=== PATIENT | male | born 1960 | race Caucasian/White ===

== ENCOUNTER 2021-07-23 09:45 | Emergency (ER) | payer BC ==
[2021-07-23 09:52] VITALS: BP 124/72; PULSE 77; RESP 18; TEMP 98
[2021-07-23] MEDS ORDERED: IBUPROFEN 600 MG TAB PO STA (10:22)
--- NOTE | 2021-07-23 10:22 | ED ---
General Adult HPI - General Chief complaint: Extremity Injury, Lower Stated complaint: R leg pain Time Seen by Provider: 07/23/21 10:06 Source: patient, RN notes reviewed Mode of arrival: ambulatory Limitations: no limitations - History of Present Illness Initial comments: Well-appearing 61-year-old male presents to the emergency room with complaints of right groin pain for the past 3 months intermittently. 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 It is better when he is resting. He denies any nausea vomiting or fevers. He does not have a primary care doctor. He denies any medical problems or surgical history. He states that the pain is better when he lays down and worse when he is walking or heavy lifting. -: month(s) (3) Location: right (Groin) Radiation: distal Severity scale (1-10): 9 Quality: sharp Consistency: intermittent, now resolved Improves with: rest Worsens with: movement (Walking or heavy lifting) Associated Symptoms: denies other symptoms Treatments Prior to Arrival: none - Related Data Allergies Allergy/AdvReac Type Severity Reaction Status Date / Time No Known Allergies Allergy Verified 07/23/21 09:49 Review of Systems ROS Statement: Those systems with pertinent positive or pertinent negative responses have been documented in the HPI. ROS Other: All systems not noted in ROS Statement are negative. Past Medical History Past Medical History: No Reported History Additional Past Medical History / Comment(s): basal cell carcinoma History of Any Multi-Drug Resistant Organisms: None Reported Past Surgical History: Appendectomy Additional Past Surgical History / Comment(s): carcinoma removal Past Psychological History: No Psychological Hx Reported Smoking Status: Never smoker Past Alcohol Use History: None Reported Past Drug Use History: None Reported General Exam Limitations: no limitations General appearance: alert, in no apparent distress Head exam: Present: atraumatic, normocephalic, normal inspection Eye exam: Present: normal appearance, PERRL, EOMI. Absent: scleral icterus, conjunctival injection, periorbital swelling ENT exam: Present: normal exam, normal oropharynx, mucous membranes moist Neck exam: Present: normal inspection, full ROM. Absent: tenderness, meningismus, lymphadenopathy Respiratory exam: Present: normal lung sounds bilaterally. Absent: respiratory distress, wheezes, rales, rhonchi, stridor Cardiovascular Exam: Present: regular rate, normal rhythm, normal heart sounds. Absent: systolic murmur, diastolic murmur, rubs, gallop, clicks GI/Abdominal exam: Present: soft, normal bowel sounds. Absent: distended, tenderness, guarding, rebound, rigid Extremities exam: Present: normal inspection, full ROM, normal capillary refill. Absent: tenderness, pedal edema, joint swelling, calf tenderness Right Neurovascular tendon exam: Present: no vascular compromise. Absent: pulse deficit, abnormal cap refill Gait: observed and normal Back exam: Present: normal inspection, full ROM. Absent: tenderness, CVA tenderness (R), CVA tenderness (L), muscle spasm, paraspinal tenderness, vertebral tenderness, rash noted Neurological exam: Present: alert, oriented X3, CN II-XII intact Psychiatric exam: Present: normal affect, normal mood Skin exam: Present: warm, dry, intact, normal color, other (Right groin inguinal hernia less than 1 cm that is reducible). Absent: rash Course Vital Signs 07/23/21 09:50 Temperature 98 F Pulse Rate 77 Respiratory 18 Rate Blood Pressure 124/72 O2 Sat by Pulse 98 Oximetry Medical Decision Making - Medical Decision Making There is a palpable indirect inguinal hernia on the right that is reducible when patient lays flat. 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 He states that the pain has been present for 3 months off and on. There is no testicular pain. He denies any dysuria or penile discharge. He was referred to surgery directed to return if any new or worsening symptoms including increased pain, nausea vomiting or fevers. Case discussed with Dr. Dennis Disposition Clinical Impression: Inguinal hernia Disposition: HOME SELF-CARE Condition: Good Instructions (If sedation given, give patient instructions): Inguinal Hernia (ED) Additional Instructions: Follow-up with surgery within the next 7 days return to the emergency room with any new or worsening symptoms including increased pain, nausea vomiting or fevers. Is patient prescribed a controlled substance at d/c from ED?: No Referrals: None,Stated [Primary Care Provider] - 1-2 days Jean-Paul Montaño MD [Medical Doctor] - 1-2 days Time of Disposition: 10:17
== END 2021-07-23 10:33 | disposition home or self-care (01) ==
LOC: EC 09:45
DX: K40.90 Unilateral inguinal hernia, without obstruction or gangrene, not specified as recurrent (principal)
CPT/HCPCS: 99283

== ENCOUNTER → 2021-07-29 | Outpatient (CLI) | payer BC ==
[2021-07-29 16:14] LABS: Basophils # (A) 0.12 X 10*3/uL (0.00-0.10); Basophils % (A) 1.7 %; Eosinophils # (A) 0.31 X 10*3/uL (0.04-0.35); Eosinophils % (A) 4.4 %; HCT 38.2 % (39.6-50.0); HGB 12.5 g/dL (13.0-17.0); Lymphocytes # (A) 1.71 X 10*3/uL (0.90-5.00); Lymphocytes % (A) 24.4 %; MCH 31.8 pg (27.0-32.0); MCHC 32.7 g/dL (32.0-37.0); MCV 97.2 fL (80.0-97.0); Mean Platelet Volume 10.7 fL (9.5-12.2); Monocytes # (A) 0.56 X 10*3/uL (0.20-1.00); Neutrophils # (A) 4.28 X 10*3/uL (1.80-7.70); Neutrophils % (A) 61.1 %; Platelet Count 325 X 10*3/uL (140-440); RBC 3.93 X 10*6/uL (4.40-5.60); RDW 12.8 % (11.5-14.5); WBC 7.01 X 10*3/uL (4.50-10.00)
== END | disposition home or self-care (01) ==
LOC: LABWHC1 09:28
PROVIDERS: ATTEND Surgery
DX: K40.90 Unilateral inguinal hernia, without obstruction or gangrene, not specified as recurrent (principal)
CPT/HCPCS: 36415; 85025

== ENCOUNTER 2021-08-03 08:02 | Day surgery (SDC) | payer BC ==
[2021-07-29 16:11] VITALS: BMI 24.3
[~2021-08-03 08:02] MED LIST: ACETAMINOPHEN TAB 500 MG TAB PO PRN; DEXAMETHASONE SOD PHOSPHATE 4 MG/ML 1 ML VIAL IV ONE; HEPARIN SODIUM,PORCINE/PF 5,000 UNIT/0.5 ML SYRINGE SQ PRN; HYDROmorphone 0.5 MG/0.5 ML SYRINGE IVP PRN; LACTATED RINGERS 1,000 ML IV SCH; ONDANSETRON 4 MG/2 ML VIAL IVP ONE
[2021-08-03] MEDS ORDERED: LIDOCAINE 1% INJ 10MG/ML (20 ML MDV) ONE ×2 (09:08→10:45)
[2021-08-03 09:29] VITALS: RESP 16
[2021-08-03] MEDS ORDERED: MIDAZOLAM 2 MG/2 ML VIAL IVP ONE ×2 (09:30→09:31)
--- NOTE | 2021-08-03 10:32 | P.GSHP ---
History of Present Illness H&P Date: 08/03/21 Chief Complaint: Right inguinal hernia This is a 7-year-old male who presents today for laparoscopic robotic-assisted repair of right inguinal hernia. Past Medical History Past Medical History: Cancer Additional Past Medical History / Comment(s): basal cell carcinoma. inguinal hernia History of Any Multi-Drug Resistant Organisms: None Reported Past Surgical History: Appendectomy Additional Past Surgical History / Comment(s): carcinoma removal Past Anesthesia/Blood Transfusion Reactions: No Reported Reaction Smoking Status: Never smoker - Past Family History Mother Family Medical History: No Reported History Medications and Allergies Home Medications Medication Instructions Recorded Confirmed Type No Known Home Medications 07/29/21 07/29/21 History Allergies Allergy/AdvReac Type Severity Reaction Status Date / Time No Known Allergies Allergy Verified 08/03/21 08:41 Surgical - Exam Vital Signs Temp Pulse Resp BP Pulse Ox 97.3 F L 67 16 145/74 100 08/03/21 09:28 08/03/21 09:28 08/03/21 09:28 08/03/21 09:28 08/03/21 09:28 - General well developed, well nourished, no distress - Eyes PERRL - ENT normal pinna - Neck no masses - Respiratory normal expansion - Cardiovascular Rhythm: regular - Abdomen Abdomen: soft, non tender Assessment and Plan Assessment: Right inguinal hernia. We'll perform laparoscopic robotic-assisted repair.
[2021-08-03] MEDS ORDERED: KETOROLAC 15 MG/ML 1 ML VIAL ONE (10:45)
[2021-08-03] MEDS ORDERED: HYDROmorphone (PF) 1 MG/ML ONE (10:45)
[2021-08-03] MEDS ORDERED: PROPOFOL 10 MG/ML 20 ML VIAL IV ONE (10:45)
[2021-08-03] MEDS ORDERED: SUCCINYLCHOLINE CHLORIDE 100 MG/5 ML SYR IV ONE (10:45)
[2021-08-03] MEDS ORDERED: LIDOCAINE 1%-EPI 1:100,000 20 ML VIAL ONE (10:45)
[2021-08-03] MEDS ORDERED: ROPIVACAINE 5 MG/ML 30 ML VIAL ONE (10:45)
[2021-08-03] MEDS ORDERED: NEOSTIGMINE 1 MG/ML 10 ML VIAL ONE (10:45)
[2021-08-03] MEDS ORDERED: fentaNYL (PF) 50 MCG/ML 2 ML AMP ONE (10:45)
[2021-08-03] MEDS ORDERED: GLYCOPYRROLATE 0.2 MG/ML 2 ML VIAL ONE (10:45)
[2021-08-03] MEDS ORDERED: MIDAZOLAM 2 MG/2 ML VIAL ONE (10:45)
[2021-08-03] MEDS ORDERED: ROCURONIUM 10 MG/ML (5 ML VIAL) IV ONE (10:45)
[2021-08-03] MEDS ORDERED: BUPIVACAINE (PF) 0.5% 30 ML VIAL SQ ONE ×2 (11:11→11:15)
[2021-08-03] MEDS ORDERED: LACTATED RINGERS 1,000 ML IV ONE (11:38)
--- NOTE | 2021-08-03 11:45 | P.OP ---
Date of Procedure: 08/03/21 Preoperative Diagnosis: Right inguinal hernia Postoperative Diagnosis: Bilateral hernia Procedure(s) Performed: Laparoscopic robotic system repair of bilateral inguinal hernia Anesthesia: YANETH Surgeon: Jaiden Friedman Estimated Blood Loss (ml): 5 Pathology: none sent Condition: stable Disposition: PACU Description of Procedure: The patient's placed on the operating table in the supine position. The patient received general anesthesia. The patient's abdomen was prepped and draped in usual sterile fashion. The skin was anesthetized 1% local Xylocaine at the incision sites. Using an 11 blade a skin incision was made at the umbilicus. The fascia was grasped with a Sen and then the peritoneal cavity was entered with the Veress needle. Position of the Veress needle was confirmed with a positive drop test. After adequate insufflation a 5 mm trocar was placed into the peritoneal cavity. The Laparoscope was placed the peritoneal cavity. And a robotic 8 mm trocar was placed in the right lateral position and then another 8 mm robotic trochars placed in the left lateral position. The original 5 mm trocar was exchanged for a 12 mm trocar. The patient was placed in reverse Trendelenburg and then the patient was docked to the robot. Next the peritoneum over top of the right inguinal hernia was incised and then using blunt and sharp dissection and electrocautery the hernia sac was dissected free from the floor of the inguinal canal. The hernia sac was completely reduced into the peritoneal cavity. And then using the Pro durability technician mesh the hernia was repaired. The peritoneum was then sutured with 20V lock suture. Next the peritoneum over top of the left inguinal hernia was incised and then using blunt and sharp dissection and electrocautery the hernia sac was dissected free from the floor of the inguinal canal. The hernia sac was completely reduc ed into the peritoneal cavity. And then using the Pro durability technician mesh the hernia was repaired. The peritoneum was then sutured with 20V lock suture. The patient was then undocked the robot. The needle was withdrawn from the peritoneal cavity. The umbilical trocar site was closed with 0 Ethibond suture. The skin was closed interrupted 3-0 Monocryl suture. Dermabond dressing was applied. Patient was sent to recovery in stable condition.
[2021-08-03 11:58] VITALS: TEMP 98.5
[2021-08-03] MEDS ORDERED: HYDROmorphone 0.5 MG/0.5 ML SYRINGE IVP ONE (12:15)
--- NOTE | 2021-08-03 12:33 | P.ANPRN ---
Procedure Note - Anesthesia - Nerve Block Performed Bilateral Erector Spinae Single Date of Procedure: 08/03/21 Procedure Start Time: :30 Procedure Stop Time: 09:38 Location of Patient: PreOp Indication: Acute Post-Operative Pain, Requested by Surgeon Sedation Type: Sedate with meaningful contact maintained Preparation: Sterile Prep Position: Prone Needle Types: Pajunk Needle Gauge: 21 Ultrasound used to visualize needle placement: Yes Ultrasound used to observe medication spread: Yes Blood Aspirated: No Pain Paresthesia on Injection Noted: No Resistance on Injection: Normal Image Stored and Saved: Yes Events: Uneventful and Well Tolerated (ropi .5% 15cc plus xylo 1% with epi 15cc given bilaterally at L1)
[2021-08-03 13:50] VITALS: BP 121/55; PULSE 61
== END 2021-08-03 13:52 | disposition home or self-care (01) ==
LOC: OR 08:02
PROVIDERS: ATTEND Surgery
DX: K40.20 Bilateral inguinal hernia, without obstruction or gangrene, not specified as recurrent (principal); Z85.828 Personal history of other malignant neoplasm of skin
CPT/HCPCS: 49650; S2900; 64999

== ENCOUNTER 2021-08-03 17:30 | Emergency (ER) | payer BC ==
[2021-08-03 17:58] VITALS: BP 137/75; PULSE 65; RESP 18; TEMP 98
--- NOTE | 2021-08-03 18:46 | ED ---
Male Urogenital HPI - General Chief complaint: Urogenital Stated complaint: post op today/not able to urinate Time Seen by Provider: 08/03/21 18:07 Source: patient Mode of arrival: ambulatory Limitations: no limitations - History of Present Illness Initial comments: 7-year-old male presents emergency Department with a chief complaint of urinary retention. Patient reports early this morning he had hernia repair surgery performed and was discharged without a Gonzalez catheter. Patient reports he was able to urinate very small amounts prior to discharge. However, he has been drinking plenty of fluids after he was discharged but is not able to urinate. Patient reports pressure over the bladder. He denies any flank pain nausea vomiting or diarrhea. Denies any fevers or chills. - Related Data Previous Rx's Medication Instructions Recorded Acetaminophen Tab [Tylenol] 650 mg PO Q6H #30 tab 08/03/21 Docusate [Colace] 100 mg PO BID #20 cap 08/03/21 Ibuprofen [Motrin] 600 mg PO Q6HR PRN #40 tab 08/03/21 oxyCODONE HCL [OxyIR] 5 mg PO Q6H PRN 3 Days #10 tab 08/03/21 oxyCODONE HCL [OxyIR] 5 mg PO Q6H PRN 3 Days #9 tab 08/03/21 Allergies Allergy/AdvReac Type Severity Reaction Status Date / Time No Known Allergies Allergy Verified 08/03/21 17:54 Review of Systems ROS Statement: Those systems with pertinent positive or pertinent negative responses have been documented in the HPI. ROS Other: All systems not noted in ROS Statement are negative. Past Medical History Past Medical History: No Reported History Additional Past Medical History / Comment(s): basal cell carcinoma History of Any Multi-Drug Resistant Organisms: None Reported Past Surgical History: Appendectomy Additional Past Surgical History / Comment(s): carcinoma removal Past Psychological History: No Psychological Hx Reported Smoking Status: Never smoker Past Alcohol Use History: None Reported Past Drug Use History: None Reported General Exam Limitations: no limitations General appearance: alert, in no apparent distress Head exam: Present: atraumatic, normocephalic, normal inspection Eye exam: Present: normal appearance Pupils: Present: normal accommodation ENT exam: Present: normal exam, normal oropharynx, mucous membranes moist Neck exam: Present: normal inspection, full ROM. Absent: tenderness, lymphadenopathy Respiratory exam: Present: normal lung sounds bilaterally. Absent: respiratory distress Cardiovascular Exam: Present: regular rate, normal rhythm, normal heart sounds. Absent: systolic murmur GI/Abdominal exam: Present: soft (Laparoscopic incision sites are healing well), tenderness (Suprapubic tenderness). Absent: distended, guarding, rebound, rigid Extremities exam: Present: normal inspection, full ROM. Absent: tenderness Back exam: Present: normal inspection, full ROM. Absent: tenderness Neurological exam: Present: alert, oriented X3 Psychiatric exam: Present: normal affect, normal mood Skin exam: Present: warm, dry, intact, normal color Course Vital Signs 08/03/21 17:54 Temperature 98 F Pulse Rate 65 Respiratory 18 Rate Blood Pressure 137/75 O2 Sat by Pulse 100 Oximetry Medical Decision Making - Medical Decision Making 61-year-old male presents emergency Department with a chief complaint of urinary retention. On physical examination, suprapubic tenderness. Laparoscopic incision sites are healing well. I gave the option of a Gonzalez catheter versus tree catheter. Patient preferred to do a straight catheter and will return if he continues to have urinary retention. Patient likely experiencing urinary retention secondary to anesthesia. Return parameters were thoroughly discussed the patient was understanding and agreeable. Case discussed with Dr. Hernandes Disposition Clinical Impression: Postoperative urinary retention Disposition: HOME SELF-CARE Condition: Stable Instructions (If sedation given, give patient instructions): Urinary Retention in Men (ED) Additional Instructions: Please return to the Emergency Department if symptoms worsen or any other concerns. Is patient prescribed a controlled substance at d/c from ED?: No Referrals: None,Stated [Primary Care Provider] - 1-2 days Time of Disposition: 18:46
== END 2021-08-03 19:19 | disposition home or self-care (01) ==
LOC: EC 17:30
DX: R33.9 Retention of urine, unspecified (principal); Z90.49 Acquired absence of other specified parts of digestive tract; Z85.828 Personal history of other malignant neoplasm of skin
CPT/HCPCS: 51701; 51798; 99283

== ENCOUNTER → 2022-03-26 | Outpatient (CLI) | payer BC ==
--- NOTE | 2022-03-26 09:24 | CT ---
EXAMINATION TYPE: CT abdomen pelvis w con DATE OF EXAM: 03/26/2022 COMPARISON: None INDICATION: Diverticulitis DLP: 711 mGycm, Automated exposure control for dose reduction was used. CONTRAST: 100 ml mL of Isovue 300. Study performed with Oral Contrast TECHNIQUE: Axial images were obtained from above the diaphragm to the pubic rami in the axial plane a t 5 mm thick sections. Reconstructed images are reviewed on the computer in the coronal plane. FINDINGS: Limited CT sections are obtained the lung bases. The lung bases are clear. CT ABDOMEN: Liver: There is a 0.9 cm cyst in the superior right lobe liver. Liver otherwise appears unremarkable. Spleen: Normal Pancreas: Normal Adrenal glands: The adrenal glands are normal. Gallbladder: Normal Kidneys: No masses are evident. No hydronephrosis is present. No cysts are present. Delayed images were obtained through the kidneys, which remain unremarkable. Aorta: Normal Inferior vena cava: Normal. CT PELVIS: Loops of bowel within the abdomen and pelvis are normal. No significant diverticuli are identified. No suspicious inflammatory change adjacent to the colon is evidence suggest acute diverticulitis. F ecal debris is through the colon. There are some loops of bowel lacking oral contrast were incomplete ly distended limiting their evaluation. Appendix: Not visualized. No suspicious dilated tubular structure or inflammatory changes evident. Urinary bladder: Normal. Genitourinary structures: Prostate is prominent. Osseous structures: No suspicious lytic or sclerotic lesions. IMPRESSIONS: 1. No suspicious abnormality to account for pelvic pain. No acute diverticulitis radiographically ev ident.
== END | disposition home or self-care (01) ==
LOC: RADCTMAIN 07:06
PROVIDERS: ATTEND Surgery Plastic and Reconstructive Surgery
DX: K57.92 Diverticulitis of intestine, part unspecified, without perforation or abscess without bleeding (principal)
CPT/HCPCS: 74177; Q9967

== ENCOUNTER → 2022-04-21 | Outpatient (CLI) | payer BC ==
[2022-04-21 17:22] LABS: INR 0.9 (<1.2); Partial Thromboplastin Time 23.9 sec (22.0-30.0)
[2022-04-21 22:32] LABS: HCT 34.6 % (39.6-50.0); HGB 11.4 g/dL (13.0-17.0); MCH 31.4 pg (27.0-32.0); MCHC 32.9 g/dL (32.0-37.0); MCV 95.3 fL (80.0-97.0); Mean Platelet Volume 10.2 fL (9.5-12.2); NRBC Per 100 WBC 0 /100 WBCS (0.0-0.0); Platelet Count 281 X 10*3/uL (140-440); RBC 3.63 X 10*6/uL (4.40-5.60); WBC 6.63 X 10*3/uL (4.50-10.00)
[2022-04-21 22:39] LABS: African American GFR (CKD) 110.4 (60.0-200.0); Albumin 4.5 g/dL (3.8-4.9); Albumin/Globulin Ratio 1.81 (1.60-3.17); Anion Gap 8.8 mmol/L (10.00-18.00); BUN/Creat Ratio 19.42 Ratio (12.00-20.00); Calcium 9.8 mg/dL (8.7-10.3); Carbon Dioxide 25.2 mmol/L (20.0-27.5); Globulin 2.5 g/dL (1.6-3.3); Non-African American GFR(CKD) 95.3 (60.0-200.0); Potassium 3.8 mmol/L (3.5-5.5); Total Bilirubin 0.2 mg/dL (0.30-1.20); Total Protein 6.9 g/dL (6.2-8.2)
[2022-04-22 00:52] LABS: Appearance,Urine Clear (Clear); Bilirubin,Urine Negative (Negative); Blood,Urine Negative (Negative); Color,Urine Yellow (Yellow); Ketones,Urine Negative (Negative); Nitrite,Urine Negative (Negative); PH, Urine 6.5 (5.0-8.0); Specific Gravity,Urine 1.011 (1.001-1.030); Urobilinogen,Urine 0.2 (0.2,1.0)
== END | disposition home or self-care (01) ==
LOC: LABWHC1 15:52
PROVIDERS: ATTEND Orthopaedic Surgery
DX: Z01.818 Encounter for other preprocedural examination (principal); I42.2 Other hypertrophic cardiomyopathy; M16.11 Unilateral primary osteoarthritis, right hip; R00.1 Bradycardia, unspecified; R94.31 Abnormal electrocardiogram [ECG] [EKG]
CPT/HCPCS: 36415; 80053; 81003; 85027; 85610; 85730; 87070; 93005

== ENCOUNTER 2022-04-28 11:55 | Observation (INO) | payer BC ==
[2022-04-23 15:20] VITALS: BMI 22.1
[~2022-04-28 11:55] MED LIST changes: +DEXAMETHASONE SOD PHOSPHATE 10 MG/ML 1 ML VIAL IV PRN; +DOCUSATE 100 MG CAP PO PRN; +FAMOTIDINE 20 MG/2 ML VIAL IVP PRN; -HEPARIN SODIUM,PORCINE/PF 5,000 UNIT/0.5 ML SYRINGE SQ PRN; -HYDROmorphone 0.5 MG/0.5 ML SYRINGE IVP PRN; +KETOROLAC 15 MG/ML 1 ML VIAL IVP PRN; -LACTATED RINGERS 1,000 ML IV SCH; +LIDOCAINE 1% (10MG/ML) FOR IV START INTRADERMA PRN; +MIDAZOLAM 2 MG/2 ML VIAL IV PRN; +ONDANSETRON 4 MG/2 ML VIAL IVP PRN; +TRANEXAMIC ACID IN NACL,ISO-OS 1,000 MG in SALINE 1 100ML.BAG IVPB PRN
[2022-04-28] MEDS: LACTATED RINGERS 1,000 ML IV SCH (12:53)
[2022-04-28] MEDS: oxyCODONE ER 10 MG TAB.ER.12H PO PRN ×2 (12:56→13:06)
[2022-04-28] MEDS ORDERED: KETOROLAC 15 MG/ML 1 ML VIAL ONE (13:00)
[2022-04-28] MEDS ORDERED: TRANEXAMIC ACID IN NACL,ISO-OS 1,000 MG in SALINE 1 100ML.BAG IVPB ONE (16:08)
[2022-04-28] MEDS ORDERED: NEOSTIGMINE 1 MG/ML 10 ML VIAL ONE (16:26)
[2022-04-28] MEDS ORDERED: PROPOFOL 10 MG/ML 20 ML VIAL IV ONE (16:26)
[2022-04-28] MEDS ORDERED: ROCURONIUM 10 MG/ML (5 ML VIAL) IV ONE (16:26)
[2022-04-28] MEDS ORDERED: GLYCOPYRROLATE 0.2 MG/ML 2 ML VIAL ONE (16:26)
[2022-04-28] MEDS ORDERED: KETAMINE 10 MG/ML 20 ML VIAL ONE (16:26)
[2022-04-28] MEDS ORDERED: SUCCINYLCHOLINE CHLORIDE 100 MG/5 ML SYR IV ONE (16:26)
[2022-04-28] MEDS ORDERED: MIDAZOLAM 2 MG/2 ML VIAL ONE (16:26)
[2022-04-28] MEDS ORDERED: fentaNYL (PF) 50 MCG/ML 2 ML AMP ONE (16:26)
[2022-04-28] MEDS ORDERED: LIDOCAINE 2% INJ 20 MG/ML (2 ML VIAL) ONE (16:26)
[2022-04-28] MEDS: ROPIVACAINE/EPI/CLONIDINE/KET 50 ML SYRINGE MISCELLANE PRN ×2 (17:15→18:15)
--- NOTE | 2022-04-28 18:37 | P.OP ---
Date of Procedure: 04/28/22 Preoperative Diagnosis: Severe right hip osteoarthritis Postoperative Diagnosis: Same Procedure(s) Performed: Right direct anterior total hip arthroplasty Implants: 1. Hammond Trident II 52 mm cup 2. Hammond Insignia size #8 high offset femoral stem 3. Biolox delta ceramic femoral head 36 mm, -5 mm neck Anesthesia: YANETH Surgeon: Rachid Gutierrez Tunnel Man #1: Beronica Yarbrough Estimated Blood Loss (ml): 200 IV fluids (ml): 1,200 Pathology: none sent Condition: stable Disposition: PACU Indications for Procedure: I had a long discussion with the patient in the office on the potential risks and complications of an elective total hip replacement through a direct anterior approach. Risks discussed include, but are certainly not limited to, risks from anesthesia, superficial infection requiring local wound care or antibiotics, deep gris-prosthetic joint infection and the treatment required to eradicate infection, intraoperative fracture, postoperative periprosthetic fracture, damage to local blood vessels or nerves particularly the lateral femoral cutaneous nerve, delayed wound healing requiring local wound care or possibly surgical debridement, hip dislocation, leg length discrepancy, soft tissue irritation around the total hip implant such as iliopsoas tendinitis or trochanteric bursitis, wear and osteolysis from the implants, squeaking or audible noises, groin pain, thigh pain, heterotopic ossification, stiffness, aseptic loosening of the implants, dissatisfaction with surgical outcome, need for revision surgery, DVT, PE, swelling of the operative extremity, acute coronary event, stroke, failure to thrive, and possibly loss of life or limb. The patient understands that while these are the most common complications after an elective hip replacement there are certainly other less common complications possible. They were given ample time to ask questions regarding the potential complications of a hip replacement. Following our discussion the patient provided their verbal and written consent to go forward with an elective total hip replacement. Description of Procedure: The patient was identified in the preoperative holding area and the correct hip was marked with my initials. I reviewed the procedure and consent with the patient. All of their questions were answered. The patient was then brought back into the operating room by anesthesia. While on the [facility] anesthesia was administered by the anesthesia team. Preoperative antibiotics and tranexamic acid were also given. After the patient was under anesthesia I examined their ankles to determine their preoperative leg length discrepancy. The skin over the anterior aspect of the hip was shaved to remove hair over the site of planned incision. Both feet and ankles were padded with webril and boots for the [place] were applied. The patient was then carefully transferred onto the [place] table. A perineal post was immediately placed. The arms were placed on arm holders and were well-padded. Both boots were secured to the spars on the [place] table. The patient was positioned so that the pelvis was centered over the post. Nonsterile drapes were applied. A timeout was performed identifying the correct patient, operative extremity, and procedure. At this point fluoroscopy was brought in to take preoperative images of the pelvis and operative hip. Using the standing AP pelvis from the office as a template, a comparable image was obtained with fluoroscopy. A metallic bar was used to create a bi-ischial line for use as a reference to leg length adjustments during the procedure. Global offset was also measured on both the operative and nonoperative leg. Fluoroscopy was then brought out and a pre-scrub using a chlorhexidine scrub brush was performed. The operative limb was then prepped and draped in the standard sterile fashion. An anterior longitudinal incision was made lateral and distal to the ASIS. The skin and subcutaneous tissues were incised sharply. The underlying tensor fascia was identified and incised in its midportion. The fascia was dissected free from the underlying muscle and the muscle belly was retracted. A blunt tipped cobra retractor was placed over the superior neck under the muscle fibers of the gluteus minimus. The deep enveloping fascia of the tensor was incised. The anterior leash of vessels were then identified and cauterized. The fascia between the rectus and the capsule was then incised and the pre-capsular fat was excised. A second Cobra was placed inferior to the neck. The interval between the rectus and iliocapsularis and the hip capsule was developed and a retractor was placed carefully over the anterior rim of the acetabulum. A T-shaped anterior capsulotomy was performed. The superior capsular leaflet was left in place in the inferior capsular flap was excised. The Cobra retractors were placed intracapsularly. We then made a femoral neck osteotomy according to preoperative and intraoperative templating and confirmed the level of the osteotomy using fluoroscopic imaging. The femoral head was removed, passed off to the back table, and sized. The superior capsular flap was excised. Retr actors were placed circumferentially exposing the acetabulum. We then circumferentially debrided the acetabulum free of labrum and osteophytes. The pulvinar was removed to fully visualize the cotyloid fossa. We then sequentially reamed to achieve peripheral fit and excellent bleeding subchondral bone. The socket was thoroughly irrigated. The acetabular component was impacted into the appropriate position using fluoroscopy to guide version, inclination, and depth of insertion taking care to have a comparable image of the AP pelvis to the standing image taken in the office. An excellent press-fit was achieved and final position was confirmed using fluoroscopy. The press fit was augmented with bony cancellus dome screws. The liner was then impacted into the socket. Attention was then turned to the femur. The remnant dorsal lateral capsule was excised. The short external rotators were visible and protected. A bone hook was used to confirm appropriate translation of the trochanter away from the acetabulum. The leg was then extended and adducted and the bone hook was used to elevate the femur for broaching. A box osteotome and blunt tipped canal sound was then utilized to gain access to the femoral canal. We then sequentially broached the femur in appropriate anteversion until excellent torsional stability was achieved. The neck cut was brought flush to the trial broach with a calcar planar. A trial neck and head were then placed onto the broach and the hip was atraumatically reduced under direct visualization. External rotation to 90 was performed to assess stability. Fluoroscopy was brought in. An AP and lateral fluoroscopic image of the proximal femur was obtained to assess position and fill of the trial broach. An AP of the pelvis was then obtained and matched to the preoperative image taken. A bi-ischial bar was then placed and measurements were taken to assess changes in length and offset. The hip was then carefully dislocated, the proximal femur was exposed, and the trial implants were removed. The wound and proximal femur was thoroughly irrigated using sterile saline and pulsatile lavage. The final femoral implant was dispensed and gently tapped into place generating an excellent press-fit. The trunnion was cleansed and the final head was tapped into place to engage the Boss taper. The acetabulum was irrigated and visualized to be free of debris. The hip was carefully reduced. Stability was checked clinically with external rotation to 90 and there was no evidence of instability. Final fluoroscopic images were taken. The wound was then thoroughly irrigated and soaked with a dilute Betadine rinse for 3 minutes. 3 L of sterile saline was irrigated through the wound using pulsatile lavage. Local anesthetic cocktail was injected into the soft tissues around the surgical field. A deep drain was placed. The wound was then closed in layers. A sterile dressing was placed over the surgical incision and drain site. The drapes were taken down and the patient was carefully transferred off of the [place] table. Following removal of the boots the leg lengths felt acceptable. The patient was then taken to recovery room having tolerated the procedure well. Beronica Yarbrough PA-C was required as a skilled assistant professor of chemistry for patient positioning, surgical exposure, retraction, placement of implants, and closure of the surgic al wound. PLAN: The patient can weight-bear as tolerated on the operative extremity. 2 doses of postoperative antibiotics. DVT prophylaxis with aspirin 81 mg twice a day based on preoperative risk stratification. Physical therapy for gait training. Discontinue drain postoperative day #1 if output is less than 100 mL per shift.
[2022-04-28] MEDS ORDERED: NALOXONE 0.4 MG/ML 1 ML VIAL IV PRN (18:53)
[2022-04-28] MEDS ORDERED: hydrOXYzine pamoate 25 MG CAP PO PRN (18:53)
[2022-04-28] MEDS ORDERED: HYDROcodone/APAP 5-325MG 1 EACH TAB PO PRN ×2 (18:53)
[2022-04-28] MEDS ORDERED: HYDROmorphone 0.5 MG/0.5 ML SYRINGE IVP PRN (18:53)
[2022-04-28] MEDS ORDERED: ONDANSETRON 4 MG/2 ML VIAL IVP PRN (18:53)
[2022-04-28] MEDS: HYDROmorphone 0.5 MG/0.5 ML SYRINGE IVP PRN ×2 (19:06→19:31)
[2022-04-28] MEDS: MEPERIDINE 50 MG/ML SYRINGE IVP ONE ×2 (19:14→19:19)
[2022-04-28] MEDS ORDERED: LACTATED RINGERS 1,000 ML IV ONE (20:25)
[2022-04-28] MEDS: HYDROmorphone 1 MG/ML 1 ML SYRINGE IVP PRN (21:17)
[2022-04-28] MEDS: ASPIRIN 81 MG PO SCH (21:19)
[2022-04-28] MEDS: SENNOSIDES-DOCUSATE SODIUM 1 EACH TAB PO SCH (21:19)
--- NOTE | 2022-04-28 21:51 | XR ---
EXAMINATION TYPE: XR Hip Limited RT DATE OF EXAM: 04/28/2022 COMPARISON: NONE HISTORY: Hip surgery TECHNIQUE: Fluoroscopy FINDINGS: 37 seconds of fluoroscopy time was recorded. There are 5 images that show placement of a ri ght total hip prosthesis in good position. No complicating process seen. IMPRESSION: No complicating process.
[2022-04-29] MEDS: HYDROmorphone 1 MG/ML 1 ML SYRINGE IVP PRN ×4 (05:00→19:40)
[2022-04-29] MEDS: LACTATED RINGERS 1,000 ML IV SCH (06:50)
[2022-04-29] MEDS: ASPIRIN 81 MG PO SCH ×2 (07:04→22:10)
[2022-04-29 09:25] LABS: Basophils # (A) 0.06 X 10*3/uL (0.00-0.10); Basophils % (A) 0.5 %; Eosinophils # (A) 0.05 X 10*3/uL (0.04-0.35); Eosinophils % (A) 0.5 %; HCT 33.5 % (39.6-50.0); HGB 10.9 g/dL (13.0-17.0); Immature Grans, Automated 0.4 %; Lymphocytes # (A) 1.91 X 10*3/uL (0.90-5.00); Lymphocytes % (A) 17.2 %; MCHC 32.5 g/dL (32.0-37.0); MCV 95.2 fL (80.0-97.0); Mean Platelet Volume 10.8 fL (9.5-12.2); Monocytes # (A) 1.31 X 10*3/uL (0.20-1.00); Monocytes % (A) 11.8 %; NRBC Per 100 WBC 0 /100 WBCS (0.0-0.0); Neutrophils # (A) 7.74 X 10*3/uL (1.80-7.70); Neutrophils % (A) 69.6 %; Platelet Count 261 X 10*3/uL (140-440); RBC 3.52 X 10*6/uL (4.40-5.60); RDW 13.2 % (11.5-14.5); WBC 11.11 X 10*3/uL (4.50-10.00)
[2022-04-29] MEDS ORDERED: TAMSULOSIN 0.4 MG CAP.ER.24H PO STA (11:02)
--- NOTE | 2022-04-29 14:13 | P.CONS ---
History of Present Illness - Reason for Consult Consult date: 04/29/22 Medical management status post right hip arthroplasty - History of Present Illness This is a pleasant 62-year-old male who was admitted under orthopedic services for severe right hip osteoarthritis and is postop day #1. Patient underwent direct anterior approach right total hip arthroplasty with Dr. Gutierrez. Patient follows with Dr. Cazares in the outpatient setting and had presurgical clearance prior to admission. Patient's only past medical history reported is basal cell carcinoma of the chest area which was removed and otherwise denies any other medical history. Patient reports he does not smoke and denies illicit drug use, reports very rarely to social drinking. Patient was having extensive right hip pain and was evaluated by orthopedics and elected for this right hip arthroplasty. On exam today patient is having some urinary retention as a potential postop complication and reports on her previous surgery he had some retention for 1-2 days after surgery that resolved. Patient has had to have straight cath with over 500 noted on bladder scan. Will initiate Flomax and encouraged increased activity and close monitoring of postvoid residuals and frequent bladder scanning. Labs revealed a WBC mild reactive at 11.11, hemoglobin is 10.9, platelets are 261. Patient is currently maintained on baby aspirin twice a day for DVT prophylaxis. Will initiate PPI for GI prophylaxis and again encouraged oral intake and increased activity as tolerating. Physical therapy following the patient. Patient is afebrile and denies any chest pain or shortness of breath. Patient reports to tolerating diet with no reports of nausea or vomiting noted. Review Of Systems: Constitutional: No fever, no chills, no night sweats. No weight change. No weakness, fatigue or lethargy. No daytime sleepiness. EENT: No headache. No blurred vision or double vision, no loss of vision. No loss of Hearing, no ringing in the ears, no dizziness. No nasal drainage or congestion. No epistaxis. No sore throat. Lungs: No shortness of breath, cough, no sputum production. No wheezing. Cardiovascular: No chest pain, no lower extremity edema. No palpitations. No paroxysmal nocturnal dyspnea. No orthopnea. No lightheadedness or dizziness. No syncopal episodes. Abdominal: No abdominal pain. No nausea, vomiting. No diarrhea. No constipation. No bloody or tarry stools.. No loss of appetite. Genitourinary: No dysuria, increased frequency, urgency. Reports urinary retention. Reports some burning with initiation of stream status post straight catheterization Musculoskeletal: No myalgias. No muscle weakness, no gait dysfunction, no frequent falls. No back pain. No neck pain. Reports some right hip discomfort Integumentary: No wounds, no lesions. No rash or pruritus. No unusual bruising. No change in hair or nails. Neurologic: No aphasia. No facial droop. No change in mentation. No head injury. No headache. No paralysis. No paresthesia. Psychiatric: No depression. No anxiety. No mood swings. Endocrine: No abnormal blood sugars. No weight change. No excessive sweating or thirst. No cold intolerance. PHYSICAL EXAMINATION: GENERAL: The patient is alert and oriented x4, Well developed, well nourished. HEENT: Pupils are round and equally reacting to light. EOMI. no scleral icterus. No conjunctival pallor. Normocephalic, atraumatic. No pharyngeal erythema. No thyromegaly. CARDIOVASCULAR: S1 and S2 muffled PULMONARY: diminished breath sounds bilaterally with no wheezing or rhonchi noted. ABDOMEN: soft. Nontender on exam. non-distended, normoactive bowel sounds. No palpable organomegaly. MUSCULOSKELETAL: No joint swelling or deformity. EXTREMITIES: No cyanosis, clubbing, or pedal edema. Right hip surgical dressing is intact, drain noted as well with some sanguinous output NEUROLOGICAL: Gross neurological examination did not reveal any focal deficits. SKIN: No rashes. Assessment: Severe right hip osteoarthritis status post anterior approach total right hip arthroplasty postop day #1 Mild leukocytosis, most likely reactive secondary to above Urinary retention, postoperatively and expected outcome with a possible component of narcotics use as well History of urinary retention postoperatively per patient GI prophylaxis DVT prophylaxis Full code Plan: Recommend to continue with current medications and management per orthopedic services. Patient has been seen and evaluated by PT/OT therapy and did quite well and reports he will be going home and has family to help. Patient has been having some urinary retention postoperatively requiring straight catheterization and will initiate Flomax and continue with frequent bladder scans and post void residuals. Post void scan showed bladder with 500 mL and recommend straight catheterization and if continue recommend indwelling Gonzalez catheter. Encouraged increase activity as tolerated and encouraged oral intake. BMP ordered and pending at this time to monitor kidney functions. Patient reports to passing gas although no bowel movement as of yet. Patient denies any pain with urination but did state had some burning with urination status post straight catheterization and would like to wait on indwelling Gonzalez catheter if possible. Will continue with bladder scans and this was discussed with nursing staff as well. Patient not currently taking any home medications and follows with Dr. Cazares in the outpatient setting and encourage the patient to follow-up in the outpatient setting on discharge. Incentive spirometer at the bedside and encourage the patient to use at least 10 times every hour while awake. Patient continues with drain noted in right hip dressing is dry and intact and discussing possible discharge tomorrow. Will follow-up on labs ordered and continue to follow closely with orthopedics during hospitalization. Thank you for this consultation. The impression and plan of care has been dictated by Digna Bal, nurse practitioner as directed. Dr. Jolynn MD I have performed a history and examination and MDM of this patient, discussed the same with the dictator, and agree with the dictator's assessment and plan as written ,documented as a scribe. Based on total visit time, I have performed more than 50% of the visit. Any additional findings or plans will be noted. Past Medical History Past Medical History: Cancer Additional Past Medical History / Comment(s): basal cell carcinoma History of Any Multi-Drug Resistant Organisms: None Reported Past Surgical History: Appendectomy, Hernia Repair, Tonsillectomy Additional Past Surgical History / Comment(s): carcinoma removal from chest area, Past Anesthesia/Blood Transfusion Reactions: No Reported Reaction Past Psychological History: No Psychological Hx Reported Smoking Status: Never smoker Past Alcohol Use History: Rare Past Drug Use History: None Reported - Past Family History Mother Family Medical History: No Reported History Medications and Allergies Home Medications Medication Instructions Recorded Confirmed Type Acetaminophen Tab [Tylenol] 650 mg PO Q6H #30 tab 08/03/21 04/23/22 Rx Allergies Allergy/AdvReac Type Severity Reaction Status Date / Time No Known Allergies Allergy Verified 04/23/22 15:13 Physical Exam Vitals: Vital Signs Temp Pulse Pulse Resp BP Pulse Ox 04/29/22 07:40 98.1 F 64 17 123/56 98 04/29/22 02:31 98.3 F 66 16 116/50 97 04/28/22 21:11 97.5 F L 83 16 143/72 95 04/28/22 20:31 55 L 16 130/66 100 04/28/22 20:17 57 L 16 134/69 100 04/28/22 19:45 54 L 16 140/66 99 04/28/22 19:31 68 16 141/63 100 04/28/22 19:17 71 16 160/72 98 04/28/22 19:06 62 16 146/65 94 L 04/28/22 18:54 97.1 F L 74 14 148/75 99 04/28/22 12:53 97.5 F L 60 16 139/80 98 Intake and Output 04/28/22 04/29/22 04/29/22 22:59 06:59 14:59 Intake Total 850 Output Total 200 1800 Balance 650 -1800 Intake: IV 850 Output: Drainage 200 Right Hip 200 Urine 1600 Straight 800 Estimated Blood Loss 200 Other: Weight 66.8 kg Results CBC & Chem 7: 04/29/22 05:55
[2022-04-29] MEDS ORDERED: HYDROcodone/APAP 7.5-325MG 1 EACH TAB PO PRN (14:20)
[2022-04-29] MEDS: PANTOPRAZOLE 40 MG TABLET PO SCH (14:22)
[2022-04-29 14:37] LABS: African American GFR (CKD) >90 (>60 ml/min/1.73 sqM); Anion Gap 2 mmol/L; Blood Urea Nitrogen 13 mg/dL (9-20); Calcium 8.9 mg/dL (8.4-10.2); Carbon Dioxide 32 mmol/L (22-30); Chloride 99 mmol/L (98-107); Glucose 114 mg/dL (74-99); Non-African American GFR(CKD) >90 (>60 ml/min/1.73 sqM); Potassium 3.8 mmol/L (3.5-5.1); Sodium 133 mmol/L (137-145)
--- NOTE | 2022-04-29 14:44 | P.PN ---
Subjective Progress Note Date: 04/29/22 This patient is a 62-year-old male who is status post right total hip arthroplasty on 04/28/22. Today is postoperative day #1. The patient is seen and examined bedside. He states he has been up ambulating to the bathroom with mild pain in the right hip. He has not been able to void freely, per nursing he required straight cath this morning. Patient denies chest pain, shortness of breath, nausea, vomi ting, fevers, chills. No additional complaints at this time. Vital signs stable. Objective - Vital Signs Vital signs: Vital Signs Temp 98.1 F 04/29/22 07:40 Pulse 64 04/29/22 07:40 Resp 17 04/29/22 07:40 BP 123/56 04/29/22 07:40 Pulse Ox 98 04/29/22 07:40 FiO2 Intake & Output 04/28/22 04/29/22 04/29/22 18:59 06:59 18:59 Intake Total 850 100 Output Total 200 1800 1025 Balance 650 -1700 -1025 Weight 66.8 kg 66.8 kg Intake: IV 850 100 Output: Drainage 200 200 Right Hip 200 200 Urine 1600 825 Straight 800 625 Estimated Blood Loss 200 - Exam On examination, patient is sitting up in bed in no apparent distress. He is alert and oriented 3. On inspection of his right hip, there is a clean, dry, and intact OpSite dressing in place with no bleeding or drainage to the dressing. Mild swelling of the thigh, the thigh soft and compressible. Motor and sensory function is intact to the right lower extremity. Femoral nerve function intact. Patient has good strength and range of motion of the right ankle and toes. Dorsalis pedis pulses easily palpable, the right lower extremity is warm and well perfused. Calf is soft and nontender to palpation. - Labs CBC & Chem 7: 04/29/22 05:55 04/29/22 14:12 Labs: Abnormal Lab Results - Last 24 Hours (Table) 04/29/22 Range/Units 05:55 WBC 11.11 H (4.50-10.00) X 10*3/uL RBC 3.52 L (4.40-5.60) X 10*6/uL Hgb 10.9 L (13.0-17.0) g/dL Hct 33.5 L (39.6-50.0) % Neutrophils # 7.74 H (1.80-7.70) X 10*3/uL Monocytes # 1.31 H (0.20-1.00) X 10*3/uL Assessment and Plan Assessment: Status-post right total hip arthroplasty on 04/28/22. Post-operative day #1. Plan: - Patient may weight-bear as tolerated on the right lower extremity. Up with a walker. - Keep operative dressing intact. - Physical therapy for gait and balance training. - Pain management as needed. Decrease use of IV Dilaudid as tolerated. - 2 doses post-operative IV antibiotics complete. - Aspirin 81 mg BID for DVT prophylaxis. - Caitlyn-operative medical management per internal medicine. Urinary retention management per internal medicine. Flomax has been started. - Anticipate discharge home tomorrow if medically cleared.
[2022-04-29] MEDS: HYDROcodone/APAP 7.5-325MG 1 EACH TAB PO PRN ×2 (15:42→22:08)
[2022-04-29] MEDS: HYDROmorphone 0.5 MG/0.5 ML SYRINGE IVP PRN (22:08)
[2022-04-29] MEDS: SENNOSIDES-DOCUSATE SODIUM 1 EACH TAB PO SCH (22:09)
[2022-04-30 01:02] VITALS: RESP 16
[2022-04-30] MEDS: HYDROmorphone 1 MG/ML 1 ML SYRINGE IVP PRN (01:16)
[2022-04-30] MEDS: HYDROmorphone 0.5 MG/0.5 ML SYRINGE IVP PRN (04:15)
[2022-04-30] MEDS: HYDROcodone/APAP 7.5-325MG 1 EACH TAB PO PRN ×2 (04:16→10:12)
[2022-04-30] MEDS: PANTOPRAZOLE 40 MG TABLET PO SCH (07:13)
[2022-04-30] MEDS: ASPIRIN 81 MG PO SCH (07:13)
[2022-04-30] MEDS: LACTATED RINGERS 1,000 ML IV SCH (07:13)
[2022-04-30] MEDS ORDERED: TAMSULOSIN 0.4 MG CAP.ER.24H PO SCH (08:30)
[2022-04-30 09:55] VITALS: BP 132/67; PULSE 66; TEMP 99.2
--- NOTE | 2022-04-30 10:48 | P.DS ---
Providers Date of admission: 04/29/22 14:56 Expected date of discharge: 04/30/22 Attending physician: Rachid Gutierrez Consults: 04/28/22 18:53 Consult Physician Routine Consulting Provider: J Carlos Engle Consult Reason/Comments: medical management Do you want consulting provider notified?: Yes Primary care physician: [facility] Course: This is a 62-year-old male with known history of degenerative arthritis of the right hip. The patient presents for evaluation. After discussion and consideration patient elects to proceed with a right total hip arthroplasty. Patient underwent a direct anterior right total hip arthroplasty on 04/28/[address] Gutierrez. The patient is seen preoperatively by Dr. Cazares and cleared for surgery. Patient is admitted to [facility] on 04/28/22 for total hip arthroplasty. The procedures performed without complication or sequelae. The patient is doing well postoperative day #2. Labs and vital signs are stable on day of discharge. Patient is examined bedside this morning with Dr. Gutierrez. He states his hip pain is well-controlled. He has been working with physical therapy. He had an issue with urinary retention post-operatively, but he is now voiding freely. He is doing well with no complaints. He denies chest pain, shortness of breath, nausea, vomiting. On exam, patient is sitting up in bed in no apparent distress. He is alert and orientated x3. On inspection of the right hip, surgical dressing in place and it is clean, dry, intact. Hemovac drain removed bedside today. There is minimal so ft tissue swelling to the hip and thigh. Patient has full foot and ankle motion without difficulty or pain. Neurovascular status to the right lower extremity is intact. Femoral nerve function intact. Patient is discharged to home today in good condition, pending medical clearance. He will follow-up in the office in two weeks with Dr. Gutierrez. Please see med rec for accurate list of discharge medications. Plan - Discharge Summary Discharge Rx Participant: Yes New Discharge Prescriptions: New Aspirin 81 mg PO BID 30 Days #60 tab Docusate [Colace] 100 mg PO BID #60 capsule HYDROcodone/APAP 5-325MG [[place] 5-325] 1 - 2 tab PO Q6HR PRN 7 Days #40 tab PRN Reason: Pain Omeprazole 40 mg PO DAILY 30 Days #30 cap Diclofenac Sodium [Voltaren] 75 mg PO BID 30 Days #60 tab Tamsulosin [Flomax] 0.4 mg PO PC-BRKFST 7 Days #7 cap No Action Acetaminophen Tab [Tylenol] 650 mg PO Q6H #30 tab Discharge Medication List Acetaminophen Tab [Tylenol] 650 mg PO Q6H #30 tab 08/03/21 [Rx] Aspirin 81 mg PO BID 30 Days #60 tab 04/30/22 [Rx] Diclofenac Sodium [Voltaren] 75 mg PO BID 30 Days #60 tab 04/30/22 [Rx] Docusate [Colace] 100 mg PO BID #60 capsule 04/30/22 [Rx] HYDROcodone/APAP 5-325MG [[place] 5-325] 1 - 2 tab PO Q6HR PRN 7 Days #40 tab 04/30/22 [Rx] Omeprazole 40 mg PO DAILY 30 Days #30 cap 04/30/22 [Rx] Tamsulosin [Flomax] 0.4 mg PO PC-BRKFST 7 Days #7 cap 04/30/22 [Rx] Follow up Appointment(s)/Referral(s): [facility], [NON-STAFF] - As Needed ([facility] will call you to schedule your in home physical therapy visits. ) Rachid Gutierrez MD [Medical Doctor] - 05/13/22 3:50 pm Ambulatory/Diagnostic Orders: Walker [DME.AMB1] Location: None Selected Activity/Diet/Wound Care/Special Instructions: Weight bear as tolerated on operative extremity with a walker. Keep operative dressing intact until follow-appointment in the office. Call the office if dressing falls off or becomes saturated. Take pain medications as prescribed. Take aspirin 81mg BID x 4 weeks for blood clot prevention. Follow-up in the office in [address] Gutierrez. Call the office with any questions or concerns, Discharge Disposition: HOME WITH HOME HEALTH SERVICES
--- NOTE | 2022-04-30 11:03 | P.PN ---
Subjective Progress Note Date: 04/30/22 - Reason for Consult Consult date: 04/29/22 Medical management status post right hip arthroplasty - History of Present Illness This is a pleasant 62-year-old male who was admitted under orthopedic services for severe right hip osteoarthritis and is postop day #1. Patient underwent direct anterior approach right total hip arthroplasty with Dr. Gutierrez. Patient follows with Dr. Cazares in the outpatient setting and had presurgical caroline sheri prior to admission. Patient's only past medical history reported is basal cell carcinoma of the chest area which was removed and otherwise denies any other medical history. Patient reports he does not smoke and denies illicit drug use, reports very rarely to social drinking. Patient was having extensive right hip pain and was evaluated by orthopedics and elected for this right hip arthroplasty. On exam today patient is having some urinary retention as a potential postop complication and reports on her previous surgery he had some retention for 1-2 days after surgery that resolved. Patient has had to have straight cath with over 500 noted on bladder scan. Will initiate Flomax and encouraged increased activity and close monitoring of postvoid residuals and frequent bladder scanning. Labs revealed a WBC mild reactive at 11.11, hemoglobin is 10.9, platelets are 261. Patient is currently maintained on baby aspirin twice a day for DVT prophylaxis. Will initiate PPI for GI prophylaxis and again encouraged oral intake and increased activity as tolerating. Physical therapy following the patient. Patient is afebrile and denies any chest pain or shortness of breath. Patient reports to tolerating diet with no reports of nausea or vomiting noted. 04/30/2022 Patient is seen in follow-up this morning status post right total hip arthroplasty and doing well anticipating discharge today. DVT prophylaxis and pain management per orthopedic services and patient will be going home on aspirin twice a day and close outpatient follow-up with orthopedics. Recommend follow-up CBC in the next 2-3 days for mild leukocytosis which is most likely reactive post surgery and also encourage the patient to follow-up with primary care provider or establish with a new one as he has been looking for one in the outpatient setting. Patient denies any chest pain, shortness of breath, or palpitations. Patient is afebrile and denies any nausea or vomiting. Patient reports to passing gas and has not had a bowel movement as of yet. Patient was having some postoperative urinary retention and started on Flomax and will continue with one week as patient is now voiding with no difficulties. Discussed with the patient about following up with primary care provider is having urinary difficulties. PHYSICAL EXAMINATION: GENERAL: The patient is alert and oriented x4, Well developed, well nourished. HEENT: Pupils are round and equally reacting to light. EOMI. no scleral icterus. No conjunctival pallor. Normocephalic, atraumatic. No pharyngeal erythema. No thyromegaly. CARDIOVASCULAR: S1 and S2 muffled PULMONARY: diminished breath sounds bilaterally with no wheezing or rhonchi noted. ABDOMEN: soft. Nontender on exam. non-distended, normoactive bowel sounds. No palpable organomegaly. MUSCULOSKELETAL: No joint swelling or deformity. EXTREMITIES: No cyanosis, clubbing, or pedal edema. Right hip surgical dressing is intact, drain noted as well with some sanguinous output NEUROLOGICAL: Gross neurological examination did not reveal any focal deficits. SKIN: No rashes. Assessment: Severe right hip osteoarthritis status post anterior approach total right hip arthroplasty postop day #2 Mild leukocytosis, most likely reactive secondary to above Urinary retention, postoperatively and expected outcome with a possible component of narcotics use as well, improved History of urinary retention postoperatively per patient GI prophylaxis DVT prophylaxis Full code Plan: Recommend to continue with current medications and management per orthopedic services. Patient is scheduled for discharge today and has support at the home and will follow-up closely in the outpatient setting with orthopedic services. Patient denies Digna Patient has been seen and evaluated by PT/OT therapy and did quite well and reports he will be going home and has family to help. Yamilex galan has been having some urinary retention postoperatively requiring straight catheterization and initiated Flomax and will continue for 1 week. Patient reports no difficulties in urinating and has been voiding throughout the night. Patient is passing gas with no bowel movement as of yet. Patient tolerating diet with no nausea or vomiting reported. Patient plans on being discharged today and does have support at home and will follow-up closely with orthopedics in the outpatient setting. DVT prophylaxis and pain management per orthopedic services and again encourage the patient to continue using incentive spirometer in the outpatient setting at least 10 times every hour while awake and following up with primary care provider on discharge. BMP within normal limits and recommend CBC in the outpatient setting in 1 week to monitor WBC. Will continue to follow closely with orthopedics during hospitalization. Thank you for this consultation. The impression and plan of care has been dictated by Digna Bal, nurse practitioner as directed. Dr. Jolynn MD I have performed a history and examination and MDM of this patient, discussed the same with the dictator, and agree with the dictator's assessment and plan as written ,documented as a scribe. Based on total visit time, I have performed more than 50% of the visit. Any additional findings or plans will be noted. Objective - Vital Signs Vital signs: Vital Signs Temp 99.2 F 04/30/22 08:00 Pulse 66 04/30/22 08:00 Resp 16 04/30/22 08:00 BP 132/67 04/30/22 08:00 Pulse Ox 97 04/30/22 08:00 FiO2 Intake & Output 04/29/22 04/30/22 04/30/22 18:59 06:59 18:59 Output Total 1415 1220 Balance -1415 -1220 Output: Drainage 240 Right Hip 240 Urine 1175 1220 Straight 625 - Labs CBC & Chem 7: 04/29/22 05:55 04/29/22 14:12 Labs: Abnormal Lab Results - Last 24 Hours (Table) 04/29/22 Range/Units 14:12 Sodium 133 L (137-145) mmol/L Carbon Dioxide 32 H (22-30) mmol/L Glucose 114 H (74-99) mg/dL
== END 2022-04-30 13:03 | disposition home health service (06) ==
LOC: OR 11:55 → 4SSUR 19:51 → OR 04-29 14:15 → 4SSUR 04-29 14:56
PROVIDERS: ADMIT Orthopaedic Surgery; ATTEND Orthopaedic Surgery
DX: M16.11 Unilateral primary osteoarthritis, right hip (principal); R33.8 Other retention of urine; D72.829 Elevated white blood cell count, unspecified; Z85.828 Personal history of other malignant neoplasm of skin; Z79.899 Other long term (current) drug therapy; Z98.890 Other specified postprocedural states
CPT/HCPCS: 97161; 86900; 86901; 80048; 85025; 86850; 88300; 73501; 27130; G0378 ×2; C1776; J2250; J1100; J2710; J2175; J0690 ×2; J2405; J3010; J1170 ×6; J1885; J0330; J2704; J2001